=== PATIENT | male | born 1970 | race Caucasian/White ===

== ENCOUNTER → 2020-01-06 | Outpatient (CLI) | payer OTHER ==
--- NOTE | 2020-01-06 11:48 | KCIC ---
EXAM: Pelvis and right hip, 2 views. HISTORY: Pain. COMPARISON: None. FINDINGS: A frontal view the pelvis and frog-leg view the right hip are obtained. There is no fracture, dislocation or subluxation. There is mild marginal acetabular and femoral head spurring. There is decreased femoral head-neck offset. There is a small chronic fragmented osteophyte or osseous acetabulum on the right. There are degenerative changes of the lower lumbar levels, not formally assessed on this exam. IMPRESSION: 1. Mild bilateral hip osteoarthritis. 2. Decreased right femoral head-neck offset, finding which can be seen with chronic hip impingement. Electronically signed by: Milla Rea MD (01/06/2020 11:45 AM) [facility]
--- NOTE | 2020-01-06 12:55 | KCIC ---
EXAM: Lumbar spine, 5 views. HISTORY: Pain. COMPARISON: None. FINDINGS: 5 views of the lumbar spine are obtained. There is grade 1 anterolisthesis of L4 and L5. There is lumbar hyperlordosis. There is endplate remodeling at multiple levels. There is facet arthropathy predominantly at the mid and lower lumbar levels. No fracture is seen. No pars defect is seen. IMPRESSION: 1. Grade 1 anterolisthesis of L4 on L5 and lumbar hyperlordosis. 2. Multilevel degenerative change, primarily at the lower lumbar levels. Electronically signed by: Milla Rea MD (01/06/2020 12:51 PM) [facility]
== END ==
LOC: KCIC 11:11
PROVIDERS: ATTEND Physical Medicine & Rehabilitation
DX: M16.0 Bilateral primary osteoarthritis of hip (principal); M47.816 Spondylosis without myelopathy or radiculopathy, lumbar region
CPT/HCPCS: 72110; 73501

== ENCOUNTER → 2020-02-13 | Outpatient (CLI) | payer OTHER ==
--- NOTE | 2020-02-13 15:18 | KCIC ---
Examination: MRI of the right hip without contrast HISTORY: History of right hip pain COMPARISON: None available TECHNIQUE: Multiplanar, multisequence MR imaging of the right hip was performed without contrast. FINDINGS: The attachment of the gluteal tendons to the greater trochanter, attachment of the iliopsoas tendon to the lesser trochanter and the attachment of the rectus femoris tendon to the anterior inferior iliac spine grossly appears intact. There is increased T2 signal identified at the attachment of the hamstring tendons to the ischial tuberosity bilaterally likely tendinosis . Moderate joint space loss right hip joint. There is a multiloculated cystic structure measuring 2.5 cm identified superior to the superior aspect of the labrum at the site of capsular attachment best visualized on series 7 image 16. Subchondral cystic changes identified in the superior right acetabulum. There is thinning of the cartilage identified in the right hip joint. IMPRESSION: 1. A 2.5 cm cystic structure identified superior to the superior aspect of the labrum at the site of capsular attachment extending inferiorly could be a paralabral cyst or ganglion cyst with possible labral tear. Consider MR arthrogram. 2. Moderate degenerative changes right hip joint with cartilage thinning. Electronically signed by: Aden Flood MD (02/13/2020 3:15 PM) [id number]
--- NOTE | 2020-02-13 15:43 | KCIC ---
MRI of the lumbar spine without contrast 02/13/2020 CLINICAL HISTORY: Low back pain which radiates down the right hip. TECHNIQUE: Unenhanced T1-weighted and T2-weighted sagittal and axial and inversion recovery sagittal images of the lumbar spine were obtained. FINDINGS: Comparison is made to radiographs of the lumbar spine dated 01/06/2020. Minimal S-shaped curvature of the thoracolumbar spine is seen. Mild anterolisthesis of L4 in relation to L5 is noted. Degenerative signal changes are seen involving the L2-3, L3-4, L4-5 and L5-S1 discs. Degenerative signal changes are seen within the marrow surrounding these discs. Loss of height of the L4-5 and L5-S1 discs is noted. The conus medullaris is normal morphology, position and signal characteristics. At the L1-2 disc space there is a minimal generalized disc bulge. Degenerative changes are seen involving the facet joints bilaterally. There is mild ligamentum flavum hypertrophy bilaterally. These findings do not result in significant central spinal canal or neural foraminal stenosis. At the L2-3 disc space there is a mild generalized disc bulge. Degenerative changes are seen involving the facet joints bilaterally. There is mild ligamentum flavum hypertrophy bilaterally. These findings when combined do not result in significant central spinal canal or neural foraminal stenosis. At the L3-4 disc space there is a mild generalized disc bulge. Degenerative changes are seen involving the facet joints bilaterally. There is mild ligamentum flavum hypertrophy bilaterally. These findings when combined do not result in significant central spinal canal or neural foraminal stenosis. At the L4-5 disc space there is a moderate generalized disc bulge. Superimposed on this disc bulge is a central/right paracentral focal disc protrusion. This measures 3 mm in AP diameter. Degenerative changes are seen involving the facet joints bilaterally. There is moderate ligamentum flavum hypertrophy bilaterally. These findings when combined result in mild right greater than left central spinal canal stenosis. Mild right greater than left neural foraminal stenosis is seen. At the L5-S1 disc space there is a minimal generalized disc bulge. Superimposed on this disc bulge is a focal central/right paracentral disc protrusion. This measures 3 mm in AP diameter. Degenerative changes are seen involving the facet joints bilaterally. These findings do not result in significant central spinal canal or neural foraminal stenosis. IMPRESSION: The changes of degenerative disc disease are seen throughout the lumbar spine. These findings result in mild right greater than left central spinal canal stenosis with mild right greater than left neural foraminal stenosis at L4-5. Electronically signed by: Viral Corrales MD (02/13/2020 3:40 PM) [id number]
== END ==
LOC: KCIC MRI 12:23
PROVIDERS: ATTEND Physical Medicine & Rehabilitation
DX: M51.36 Other intervertebral disc degeneration, lumbar region (principal); M70.71 Other bursitis of hip, right hip; M51.27 Other intervertebral disc displacement, lumbosacral region
CPT/HCPCS: 72148; 73721